=== PATIENT | female | born 1995 | race Caucasian/White ===

== ENCOUNTER 2018-06-02 19:05 | Outpatient (CLI) | payer MEDICAID ==
[2018-06-02 22:02] LABS: ADD MAN DIFF? NO
[2018-06-02 22:07] LABS: BASOPHILS % 0.1 % (0.0-2.0); EOSINOPHILS % 0.3 % (0.0-7.0); HEMATOCRIT 38.2 % (37.0-47.0); HEMOGLOBIN 12.9 g/dl (12.0-16.0); LYMPHOCYTES % 20.2 % (15.0-51.0); MEAN CORPUSCULAR HEMOGLOBIN 31.3 pg (29.0-33.0); MEAN CORPUSCULAR HGB CONC 33.8 g/dl (32.0-37.0); MEAN CORPUSCULAR VOLUME 92.7 fl (82.0-101.0); MEAN PLATELET VOLUME 11.8 fl (7.4-10.4); MONOCYTE # 0.7 10^3/ul (0.3-0.9); MONOCYTES % 7.2 % (0.0-11.0); NEUTROPHIL # 6.9 10^3/ul (1.6-7.5); NEUTROPHILS % 71.5 % (39.0-77.0); PLATELET COUNT 214 10^3/UL (140-415); RED BLOOD COUNT 4.12 10^6/ul (4.20-5.40); RED CELL DISTRIBUTION WIDTH 13.2 % (11.5-14.5)
[2018-06-02 22:07] LABS: WHITE BLOOD COUNT 9.7 10^3/ul (4.8-10.8)
[2018-06-02 22:26] LABS: ALANINE AMINOTRANSFERASE 24 IU/L (13-69); ALBUMIN 3.7 g/dl (3.3-4.9); ALBUMIN/GLOBULIN RATIO 1.12; ALKALINE PHOSPHATASE 239 IU/L (42-121); ANION GAP 8 (5-13); ASPARTATE AMINO TRANSFERASE 21 IU/L (15-46); BILIRUBIN,INDIRECT 0.4 mg/dl (0-1.1); BILIRUBIN,TOTAL 0.4 mg/dl (0.2-1.3); BLOOD UREA NITROGEN 8 mg/dl (7-20); CALCIUM 8.9 mg/dl (8.4-10.2); CARBON DIOXIDE 21 mmol/L (21-31); CHLORIDE 108 mmol/L (97-110); CREATININE 0.54 mg/dl (0.44-1.00); Estimated GFR > 60 mL/min (>60); GLUCOSE 90 mg/dl (70-220); SODIUM 137 mmol/L (135-144); URIC ACID 3.2 mg/dl (3.1-7.9)
[2018-06-02] MEDS ORDERED: ACETAMINOPHEN 325 MG TAB PO (22:30)
[2018-06-02 23:47] LABS: ADD UMIC NO; UR ASCORBIC ACID NEGATIVE (NEGATIVE); UR BILIRUBIN (Dip) NEGATIVE (NEGATIVE); UR BLOOD (Dip) NEGATIVE (NEGATIVE); UR CLARITY CLEAR (CLEAR); UR COLOR STRAW (YELLOW); UR GLUCOSE (Dip) NEGATIVE (NEGATIVE); UR KETONES (Dip) NEGATIVE (NEGATIVE); UR LEUKOCYTE ESTERASE (Dip) NEGATIVE Leu/ul (NEGATIVE); UR NITRITE (Dip) NEGATIVE (NEGATIVE); UR SPECIFIC GRAVITY (Dip) 1.009 (1.003-1.030); UR TOTAL PROTEIN (Dip) NEGATIVE (NEGATIVE); UR UROBILINOGEN (Dip) NEGATIVE (NEGATIVE)
== END 2018-06-03 00:59 | disposition home or self-care (01) ==
LOC: OBT 19:05 → L-D 19:06
DX: O26.893 Other specified pregnancy related conditions, third trimester (principal); R51 Headache; Z3A.38 38 weeks gestation of pregnancy
CPT/HCPCS: 76705; 76815; 76818; 80053; 81003; 84560; 85025

== ENCOUNTER 2018-06-07 13:07 | Inpatient (IN) | payer MEDICAID ==
[2018-06-07 14:08] LABS: RUPTURE FETAL MEMBRANES NEGATIVE (NEGATIVE)
[2018-06-07] MEDS: LACTATED RINGER'S 1,000 ML IV ×2 (15:29→20:28)
[2018-06-07 17:11] LABS: ADD MAN DIFF? NO
[2018-06-07 17:15] LABS: WHITE BLOOD COUNT 8.9 10^3/ul (4.8-10.8)
[2018-06-07 17:15] LABS: BASOPHILS % 0.2 % (0.0-2.0); EOSINOPHILS % 0.2 % (0.0-7.0); HEMATOCRIT 39.1 % (37.0-47.0); HEMOGLOBIN 13.1 g/dl (12.0-16.0); LYMPHOCYTES # 1.7 10^3/ul (0.8-2.9); LYMPHOCYTES % 19.4 % (15.0-51.0); MEAN CORPUSCULAR HEMOGLOBIN 31.2 pg (29.0-33.0); MEAN CORPUSCULAR HGB CONC 33.5 g/dl (32.0-37.0); MEAN CORPUSCULAR VOLUME 93.1 fl (82.0-101.0); MONOCYTE # 0.6 10^3/ul (0.3-0.9); MONOCYTES % 6.6 % (0.0-11.0); NEUTROPHIL # 6.5 10^3/ul (1.6-7.5); NEUTROPHILS % 72.6 % (39.0-77.0); PLATELET COUNT 203 10^3/UL (140-415); RED CELL DISTRIBUTION WIDTH 13.2 % (11.5-14.5)
[2018-06-07 17:43] LABS: INR 0.91; PROTIME 12.3 Sec (11.9-14.9)
[2018-06-07 17:44] LABS: PARTIAL THROMBOPLASTIN TIME 28.9 Sec (23.0-35.0)
[2018-06-08] MEDS: LACTATED RINGER'S 1,000 ML IV ×2 (04:28→13:19)
[2018-06-08] MEDS ORDERED: PRENATAL VITAMIN PO (09:00)
[2018-06-08] MEDS: PRENATAL VITAMIN PO (09:28)
[2018-06-08] MEDS: FERROUS SULFATE (EC) 325 MG TAB PO (09:28)
== END 2018-06-08 12:45 | disposition home or self-care (01) | DRG 833 ==
LOC: OBT 13:07 → L-D 13:08 → OBT 14:40 → L-D 14:40 → PP1 18:37
PROVIDERS: Obstetrics & Gynecology
DX: O41.03X0 Oligohydramnios, third trimester, not applicable or unspecified (principal); Z3A.38 38 weeks gestation of pregnancy
CPT/HCPCS: 76818; 84112; 85025; 85610; 85730; 86900; 86901

== ENCOUNTER 2018-06-10 09:31 | Outpatient (CLI) | payer MEDICAID | END 2018-06-10 11:54 | disposition home or self-care (01) | LOC: OBT 09:31 → L-D 09:31 → OBT 11:54 | DX: O41.93X0 Disorder of amniotic fluid and membranes, unspecified, third trimester, not applicable or unspecified (principal); Z3A.38 38 weeks gestation of pregnancy | CPT/HCPCS: 76818 ==

== ENCOUNTER 2018-06-13 06:12 | Inpatient (IN) | payer MEDICAID ==
[2018-06-13] MEDS ORDERED: CARBOPROST 250 MCG INJ IM ×2 (07:00→14:30)
[2018-06-13] MEDS ORDERED: METHYLERGONOVINE 0.2 MG INJ IM ×2 (07:00→14:30)
[2018-06-13] MEDS ORDERED: BUTORPHANOL 2 MG INJ IV (07:00)
[2018-06-13] MEDS ORDERED: OXYTOCIN 30 UNITS/LR 500 ML IV ×2 (07:00→14:30)
[2018-06-13] MEDS: AMPICILLIN 2 GM/NS (PMX) 100 ML IV (07:00)
[2018-06-13] MEDS ORDERED: LIDOCAINE 1% (MPF) 30 ML INJ INJ (07:00)
[2018-06-13] MEDS ORDERED: MISOPROSTOL 200 MCG TAB PR ×2 (07:00→14:30)
[2018-06-13 07:05] LABS: ADD MAN DIFF? NO
[2018-06-13 07:07] LABS: BASOPHILS % 0.2 % (0.0-2.0); EOSINOPHILS % 0.2 % (0.0-7.0); HEMATOCRIT 38.9 % (37.0-47.0); LYMPHOCYTES # 1.9 10^3/ul (0.8-2.9); LYMPHOCYTES % 15.5 % (15.0-51.0); MEAN CORPUSCULAR HEMOGLOBIN 30.8 pg (29.0-33.0); MEAN CORPUSCULAR HGB CONC 33.4 g/dl (32.0-37.0); MEAN CORPUSCULAR VOLUME 92.2 fl (82.0-101.0); MEAN PLATELET VOLUME 12.2 fl (7.4-10.4); MONOCYTE # 0.8 10^3/ul (0.3-0.9); MONOCYTES % 6.4 % (0.0-11.0); NEUTROPHIL # 9.4 10^3/ul (1.6-7.5); NEUTROPHILS % 77.1 % (39.0-77.0); PLATELET COUNT 205 10^3/UL (140-415); RED BLOOD COUNT 4.22 10^6/ul (4.20-5.40); RED CELL DISTRIBUTION WIDTH 13.1 % (11.5-14.5)
[2018-06-13 07:07] LABS: WHITE BLOOD COUNT 12.2 10^3/ul (4.8-10.8)
[2018-06-13 07:27] LABS: INR 0.86; PROTIME 11.8 Sec (11.9-14.9); PT RATIO 0.9
[2018-06-13 07:28] LABS: PARTIAL THROMBOPLASTIN TIME 29.5 Sec (23.0-35.0)
[2018-06-13] MEDS: LACTATED RINGER'S 1,000 ML IV ×3 (07:43→08:34)
[2018-06-13] MEDS ORDERED: FENTAnyl 2MCG/ML-ROPIV 0.2% 100 ML (08:00)
[2018-06-13 08:01] LABS: HEPATITIS B SURFACE ANTIGEN NEGATIVE (NEGATIVE)
[2018-06-13] MEDS ORDERED: NALBUPHINE HCL (10 MG/1 ML) INJ IV (10:30)
[2018-06-13] MEDS ORDERED: DIPHENHYDRAMINE 50 MG INJ IV ×2 (10:30→14:30)
[2018-06-13] MEDS ORDERED: ONDANSETRON 4 MG INJ IV ×2 (10:30→14:30)
[2018-06-13] MEDS ORDERED: NALOXONE (0.4 MG/ML) INJ IV (10:30)
[2018-06-13] MEDS ORDERED: FENTAnyl 2MCG/ML-ROPIV 0.2% 100 ML BAG EPI (10:30)
[2018-06-13] MEDS ORDERED: AMPICILLIN 1 GM/NS (PMX) 50 ML IV (11:00)
[2018-06-13] MEDS: OXYTOCIN 30 UNITS/LR 500 ML IV ×2 (13:13)
[2018-06-13] MEDS: IBUPROFEN 600 MG TAB PO ×2 (13:35→18:00)
[2018-06-13] MEDS: DEXTROSE 5%-LR 1,000 ML IV (14:13)
[2018-06-13] MEDS ORDERED: OXYCODONE/ASPIRIN (4.88/325) TAB PO (14:30)
[2018-06-13] MEDS ORDERED: ACETAMINOPHEN 325 MG TAB PO (14:30)
[2018-06-13] MEDS ORDERED: BENZOCAINE 20% 56 ML SPRAY TOP (14:30)
[2018-06-13] MEDS ORDERED: MAGNESIUM HYDROXIDE 30ML CUP PO (14:30)
[2018-06-13] MEDS ORDERED: SENNA/DOCUSATE NA (8.6MG/50MG) TAB PO (14:30)
[2018-06-13] MEDS ORDERED: ZOLPIDEM 5 MG TAB PO (14:30)
[2018-06-13] MEDS ORDERED: LANOLIN 7 GM TUBE TOP (14:30)
[2018-06-13] MEDS ORDERED: WITCH HAZEL/GLYCERIN PAD PR (14:30)
[2018-06-13] MEDS ORDERED: DIBUCAINE 1% 30 GM OINT TOP (14:30)
[2018-06-13] MEDS: LACTATED RINGER'S 1,000 ML IV* (16:07)
[2018-06-13 17:22] LABS: RAPID PLASMA REAGIN NONREACTIVE (NR)
[2018-06-14] MEDS: IBUPROFEN 600 MG TAB PO ×5 (00:03→23:44)
[2018-06-14] MEDS: LACTATED RINGER'S 1,000 ML IV (00:28)
[2018-06-14] MEDS: DEXTROSE 5%-LR 1,000 ML IV (00:28)
[2018-06-14] MEDS: LACTATED RINGER'S 1,000 ML IV* (00:28)
[2018-06-14 07:28] LABS: ADD MAN DIFF? NO
[2018-06-14 07:30] LABS: WHITE BLOOD COUNT 13.5 10^3/ul (4.8-10.8)
[2018-06-14 07:30] LABS: BASOPHILS % 0.2 % (0.0-2.0); EOSINOPHILS % 0.2 % (0.0-7.0); HEMATOCRIT 39.5 % (37.0-47.0); LYMPHOCYTES # 1.5 10^3/ul (0.8-2.9); LYMPHOCYTES % 11.4 % (15.0-51.0); MEAN CORPUSCULAR HGB CONC 32.9 g/dl (32.0-37.0); MEAN CORPUSCULAR VOLUME 94.3 fl (82.0-101.0); MEAN PLATELET VOLUME 12.2 fl (7.4-10.4); MONOCYTE # 0.7 10^3/ul (0.3-0.9); MONOCYTES % 5.2 % (0.0-11.0); NEUTROPHIL # 11.1 10^3/ul (1.6-7.5); NEUTROPHILS % 82.4 % (39.0-77.0); PLATELET COUNT 158 10^3/UL (140-415); RED BLOOD COUNT 4.19 10^6/ul (4.20-5.40); RED CELL DISTRIBUTION WIDTH 13.3 % (11.5-14.5)
[2018-06-15] MEDS: IBUPROFEN 600 MG TAB PO ×2 (06:18→12:24)
[2018-06-15] MEDS: MEASLES,MUMPS,RUBELLA VACCINE INJ SC* (09:30)
[2018-06-15] MEDS: DIPHTH/TET/ACEL PERTUSS (ADULT) 0.5 ML VIAL IM* (09:30)
== END 2018-06-15 14:45 | disposition home or self-care (01) | DRG 807 ==
LOC: OBT 06:12 → L-D 06:13 → OBT 06:20 → L-D 06:20 → PP1 13:59
PROVIDERS: Obstetrics & Gynecology
PROC: 10D07Z6 Extraction of Products of Conception, Vacuum, Via Natural or Artificial Opening (ICD-10-PCS; principal; 2018-06-13)
PROC: 0W8NXZZ Division of Female Perineum, External Approach (ICD-10-PCS; 2018-06-13)
DX: O76 Abnormality in fetal heart rate and rhythm complicating labor and delivery (principal); Z37.0 Single live birth; O69.81X0 Labor and delivery complicated by cord around neck, without compression, not applicable or unspecified; Z3A.38 38 weeks gestation of pregnancy
CPT/HCPCS: 62319; 85025; 85610; 85730; 86592; 86850; 86900; 86901; 87340; 90715; 99464